=== PATIENT | male | born 1990 | race Two or more races ===

== ENCOUNTER → 2020-03-11 | Emergency (ER) | payer OTHER ==
[~2020-03-11] VITALS: Ht 162.6 cm; Wt 69.4 kg
[2020-03-11 16:31] LABS: Basophils # (auto) 0 10 ^3/uL (0-0.2); Eosinophils # (auto) 0.1 10 ^3/uL (0-0.8); Lymphocytes # (auto) 1.9 10 ^3/uL (0.4-5.4); Monocytes # (auto) 0.5 10 ^3/uL (0-1.3); Neutrophils # (auto) 3.8 10 ^3/uL (1.6-8.6); Nucleated Red Blood Cells % 0.2 %; White Blood Cell 6.3 10^3/uL (4.4-10.8)
[2020-03-11 16:34] LABS: Basophils % (auto) 0.4 % (0.0-2.0); Eosinophils % (auto) 1.4 % (0.0-7.0); Hematocrit 52.6 % (41.0-53.0); Hemoglobin 18.2 g/dL (13.5-17.5); Lymphocytes % (auto) 29.9 % (10.0-50.0); Mean Corpuscular Hemoglobin 31.6 pg (28.0-32.0); Mean Corpuscular Hgb Conc. 34.6 g/dL (32.0-36.0); Mean Corpuscular Volume 91.2 fL (80.0-100.0); Monocytes % (auto) 8.2 % (0.0-12.0); Neutrophils % (auto) 60.1 % (37.0-80.0); Platelet Count (auto) 245 10^3/uL (140-450); Red Blood Cells 5.76 10^6/uL (4.5-5.90); Red Cell Distribution Width 13.1 % (11.8-14.3)
[2020-03-11 17:04] LABS: Albumin 4.1 g/dL (3.4-5.0)
[2020-03-11 17:08] LABS: Alanine Aminotransferase 32 U/L (16-61); Alkaline Phosphatase 67 U/L (45-117); Aspartate Aminotransferase 22 U/L (15-37); Bilirubin, Total 0.9 mg/dL (0.2-1.0)
[2020-03-11 17:35] LABS: Anion Gap 6 (5-15); Blood Urea Nitrogen 22 mg/dL (7-18); Carbon Dioxide 26 mmol/L (21-32); Chloride 106 mmol/L (98-107); Glucose 83 mg/dL (74-106); Potassium 3.6 mmol/L (3.5-5.1); Sodium 138 mmol/L (136-145)
[2020-03-11 17:36] LABS: BUN/Creatinine Ratio 22.9; Calcium 8.9 mg/dL (8.5-10.1); GFR African American 120 mL/min; GFR Non-African American 99 mL/min
[2020-03-11 17:47] VITALS: BP 127/74
== END | disposition home or self-care (01) ==
LOC: ER 13:49
DX: R07.89 Other chest pain (principal); G51.0 Bell's palsy
CPT/HCPCS: 36415; 71046; 71250; 80053; 84484; 85025; 93005

== ENCOUNTER 2021-01-21 11:54 | Emergency (ER) | payer OTHER ==
[~2021-01-21] VITALS: Ht 167.6 cm; Wt 72.6 kg
[2021-01-21] MEDS ORDERED: SODIUM CHLORIDE 0.9% 1,000 ML IV ONE ×2 (12:00)
[2021-01-21 12:27] LABS: Eosinophils # (auto) 0 10 ^3/uL (0-0.8); Mean Corpuscular Hgb Conc. 35.1 g/dL (32.0-36.0); Red Cell Distribution Width 13.4 % (11.8-14.3)
[2021-01-21 12:32] LABS: Basophils # (auto) 0 10 ^3/uL (0-0.2); Basophils % (auto) 0.2 % (0.0-2.0); Eosinophils % (auto) 0.1 % (0.0-7.0); Hematocrit 52.1 % (41.0-53.0); Hemoglobin 18.3 g/dL (13.5-17.5); Lymphocytes % (auto) 6.2 % (10.0-50.0); Mean Corpuscular Hemoglobin 31.7 pg (28.0-32.0); Mean Corpuscular Volume 90.5 fL (80.0-100.0); Monocytes % (auto) 6.2 % (0.0-12.0); Neutrophils % (auto) 87.3 % (37.0-80.0); Red Blood Cells 5.76 10^6/uL (4.5-5.90)
[2021-01-21 12:43] LABS: Alanine Aminotransferase 30 U/L (16-61); Anion Gap 7 (5-15); Aspartate Aminotransferase 16 U/L (15-37); Blood Urea Nitrogen 38 mg/dL (7-18); Carbon Dioxide 23 mmol/L (21-32); Chloride 104 mmol/L (98-107); GFR African American 76 mL/min; GFR Non-African American 63 mL/min; Glucose 106 mg/dL (74-106); Potassium 3.8 mmol/L (3.5-5.1); Sodium 134 mmol/L (136-145)
[2021-01-21 12:48] LABS: Alkaline Phosphatase 68 U/L (45-117); Bilirubin, Total 2.6 mg/dL (0.2-1.0)
[2021-01-21] MEDS ORDERED: TRAZ-181 PO (15:30)
[2021-01-21] MEDS ORDERED: FLUO20CA90 PO (15:30)
[2021-01-21] MEDS ORDERED: OLAN1TAB19 PO (15:30)
[2021-01-21] MEDS ORDERED: RISP3TAB44 PO (15:30)
[2021-01-21] MEDS ORDERED: IBUP600T28 PO (15:30)
[2021-01-21] MEDS ORDERED: DIVA1TAB39 PO (15:30)
[2021-01-22] MEDS ORDERED: FLUoxetine HCL 20 MG CAP PO ONE (08:15)
[2021-01-22] MEDS ORDERED: OLANZapine 5 MG TAB PO ONE (10:00)
[2021-01-22] MEDS ORDERED: risperiDONE 1 MG TAB PO ONE (10:00)
[2021-01-22 12:46] LABS: Urine Bacteria NONE SEEN /hpf (None Seen); Urine Blood Negative /uL (Negative); Urine Mucus FEW (None Seen); Urine Specific Gravity 1.022 (1.001-1.035); Urine WBC 2 /hpf (0 - 3)
[2021-01-22 12:58] LABS: Alcohol, Urine < 3.0 mg/dL (0-10); Amphetamine Screen, Urine POSITIVE (NEGATIVE); Barbiturate Scree,Urine NEGATIVE (NEGATIVE); Benzodiazephine Screen, Urine NEGATIVE (NEGATIVE); Cannabinoid Screen, Urine POSITIVE (NEGATIVE)
[2021-01-22 13:06] LABS: Cocaine Screen, Urine POSITIVE (NEGATIVE); Opiate Scree,Urine NEGATIVE (NEGATIVE); Phencyclidine Screen, Urine NEGATIVE (NEGATIVE)
[2021-01-22] MEDS ORDERED: traZODone HCL 50 MG TAB PO ONE (22:00)
[2021-01-23] MEDS ORDERED: traZODone HCL 50 MG TAB PO ONE (20:30)
[2021-01-24 08:00] VITALS: BP 119/64
[2021-01-24] MEDS ORDERED: FLUoxetine HCL 20 MG CAP PO SCH (10:00)
== END 2021-01-24 16:53 | disposition still patient (30) ==
LOC: ER 11:54 → EDBD 11:54 → ER 01-24 16:53
DX: R45.851 Suicidal ideations (principal); F15.10 Other stimulant abuse, uncomplicated; F10.10 Alcohol abuse, uncomplicated; F17.210 Nicotine dependence, cigarettes, uncomplicated; Z79.1 Long term (current) use of non-steroidal anti-inflammatories (NSAID); Z79.899 Other long term (current) drug therapy; Y90.0 Blood alcohol level of less than 20 mg/100 ml; Z20.822 Contact with and (suspected) exposure to COVID-19
CPT/HCPCS: 36415; 71045; 80053; 80307; 81001; 84484; 85025; 87426